=== PATIENT | male | born 1990 | race Two or more races ===

== ENCOUNTER 2016-08-27 12:30 | Emergency (ER) | payer SELFPAY ==
[~2016-08-27] VITALS: Ht 180.3 cm; Wt 81.6 kg
[2016-08-27] MEDS ORDERED: HYDROMORPHONE 1 MG/1 ML DISP.SYRIN ONE (12:49)
[2016-08-27] MEDS ORDERED: ONDANSETRON HCL/PF 4 MG/2 ML VIAL ONE (12:49)
[2016-08-27] MEDS ORDERED: HYDROMORPHONE INJ 2 MG/ML DISP.SYRIN IV ONE (13:00)
[2016-08-27] MEDS ORDERED: PROPOFOL 200 MG/20 ML VIAL IV ONE ×2 (13:00→13:30)
[2016-08-27] MEDS ORDERED: ONDANSETRON HCL/PF 4 MG/2 ML VIAL IVP ONE (13:00)
[2016-08-27] MEDS ORDERED: PROPOFOL 20 ML IV ONE (13:02)
[2016-08-27 14:57] VITALS: BP 138/74
== END 2016-08-27 14:57 | disposition home or self-care (01) ==
LOC: ER 12:31
DX: S43.005A Unspecified dislocation of left shoulder joint, initial encounter (principal); M25.562 Pain in left knee; W22.8XXA Striking against or struck by other objects, initial encounter; Y93.01 Activity, walking, marching and hiking; Y92.488 Other paved roadways as the place of occurrence of the external cause; Y99.9 Unspecified external cause status
CPT/HCPCS: 73020; 73030-TC; 73564-TC; A4606; J1170; J2405; J2704; Z7610